=== PATIENT | female | born 1945 | race African-American/Black ===

== ENCOUNTER 2016-05-25 07:48 | Emergency (ER) | payer MEDICARE, OTHER ==
[~2016-05-25] VITALS: Ht 167.6 cm; Wt 100.0 kg
[2016-05-25] MEDS ORDERED: ACET-2247 PO (07:52)
[2016-05-25 08:11] VITALS: BP 152/77
== END 2016-05-25 09:02 | disposition home or self-care (01) ==
LOC: EMS 07:49
DX: K04.7 Periapical abscess without sinus (principal); H92.02 Otalgia, left ear
CPT/HCPCS: 99283

== ENCOUNTER 2021-12-16 08:01 | Inpatient (IN) | payer MEDICARE, OTHER ==
[~2021-12-16] VITALS: Ht 167.6 cm; Wt 93.5 kg
[~2021-12-16 08:01] MED LIST: ACET-2247 PO
[2021-12-16] MEDS ORDERED: HYDR25TA2 PO (08:27)
[2021-12-16] MEDS ORDERED: ATOR40TA28 PO (08:27)
[2021-12-16] MEDS ORDERED: LISI-893 PO (08:27)
[2021-12-16] MEDS ORDERED: AMLO-258 PO (08:27)
[2021-12-16 08:28] LABS: BASOPHILS % (AUTO) 0.4 % (0.0-2.0); EOSINOPHILS % (AUTO) 0.4 % (1.0-6.0); HEMATOCRIT 42.6 % (36-46); HEMOGLOBIN 13.7 g/dL (12.0-16.0); LYMPHOCYTES # (AUTO) 1.5 K/uL (1.0-4.8); LYMPHOCYTES % (AUTO) 9.1 % (22.0-44.0); MEAN CORPUSCULAR HEMOGLOBIN 26.6 pg (26.0-34.0); MEAN CORPUSCULAR HGB CONC 32.1 G/dL (31.0-37.0); MEAN CORPUSCULAR VOLUME 83 fL (80-100); MONOCYTES % (AUTO) 6.1 % (2.0-9.0); NEUTROPHILS # (AUTO) 13.4 K/uL (1.8-7.7); PLATELET COUNT (AUTO) 182 K/uL (150-450); RED BLOOD CELL COUNT(AUTO) 5.14 MIL/uL (4.00-5.20); RED CELL DISTRIBUTION WIDTH 15.2 % (11.5-14.5)
[2021-12-16 08:36] LABS: COVID AG,FIA SOURCE NASAL SWAB
[2021-12-16] MEDS ORDERED: ACETAMINOPHEN 325 MG TABLET PO PRN (08:45)
[2021-12-16] MEDS ORDERED: DILTIAZEM HCL 5 MG/ML 5 ML VIAL IVP ONE ×2 (08:45→11:45)
[2021-12-16 08:54] LABS: INR 1.3 (0.9-1.1); PROTHROMBIN TIME 13.2 SEC (9.4-11.6)
[2021-12-16] MEDS ORDERED: APIXABAN 5 MG TABLET PO SCH (09:00)
[2021-12-16 09:02] LABS: ALBUMIN 3.4 g/dL (3.4-5.0); BILIRUBIN,TOTAL 1.4 mg/dL (0.1-1.0); CALCIUM, TOTAL 9.3 mg/dL (8.8-10.5); CREATININE 1.32 mg/dL (0.60-1.30); THYROID STIMULATING HORMONE 0.63 uIU/mL (0.36-3.74); TOTAL PROTEIN, SERUM 7.6 g/dL (6.4-8.2)
[2021-12-16 09:05] LABS: POTASSIUM 2.6 mmol/L (3.5-5.1)
[2021-12-16] MEDS: DOCUSATE SODIUM 100 MG CAPSULE PO SCH ×2 (09:09→20:55)
[2021-12-16] MEDS: AMIODARONE HCL 200 MG TABLET PO SCH ×2 (09:10→20:55)
[2021-12-16] MEDS: FAMOTIDINE 20 MG TABLET PO SCH (09:10)
[2021-12-16] MEDS ORDERED: POTASSIUM CHLORIDE 20 MEQ ER TABLET PO ONE (09:15)
[2021-12-16] MEDS: POTASSIUM CHL 10 MEQ/WATER 50 ML IV SCH ×2 (09:30→10:25)
[2021-12-16] MEDS ORDERED: SODIUM CHLORIDE 0.9% 1,000 ML IV ONE (09:30)
[2021-12-16] MEDS ORDERED: ASPIRIN 81 MG CHEWABLE TABLET PO ONE (09:45)
[2021-12-16 09:50] LABS: MAGNESIUM 2.4 mg/dL (1.80-2.40)
[2021-12-16] MEDS ORDERED: DILTIAZEM HCL 125 MG in DEXTROSE 5%-WATER 100 ML IV SCH (11:45)
[2021-12-16] MEDS ORDERED: LORazepam 2 MG/ML VIAL IVP ONE (14:15)
[2021-12-16] MEDS ORDERED: LORazepam 1 MG TABLET PO ONE (14:15)
[2021-12-16] MEDS ORDERED: LORazepam 2 MG/ML VIAL ONE (14:22)
[2021-12-16] MEDS ORDERED: HEPARIN SODIUM 25000 UNITS/D5W 250 ML IV PRN (14:45)
[2021-12-16] MEDS ORDERED: LORazepam 2 MG/ML VIAL IM ONE (14:45)
[2021-12-16] MEDS ORDERED: HEPARIN SODIUM,PORCINE 5,000 UNITS/ML VIAL IVP PRN ×2 (14:45)
[2021-12-16 15:01] VITALS: BP 118/60
[2021-12-16 15:33] LABS: BASOPHILS % (AUTO) 0.2 % (0.0-2.0); EOSINOPHILS % (AUTO) 0 % (1.0-6.0); HEMATOCRIT 41.5 % (36-46); HEMOGLOBIN 13.2 g/dL (12.0-16.0); LYMPHOCYTES # (AUTO) 0.9 K/uL (1.0-4.8); LYMPHOCYTES % (AUTO) 7.5 % (22.0-44.0); MEAN CORPUSCULAR HEMOGLOBIN 26.5 pg (26.0-34.0); MEAN CORPUSCULAR HGB CONC 31.8 G/dL (31.0-37.0); MEAN CORPUSCULAR VOLUME 83 fL (80-100); MONOCYTES # (AUTO) 0.7 K/uL (0.1-1.0); MONOCYTES % (AUTO) 5.9 % (2.0-9.0); NEUTROPHILS # (AUTO) 10.6 K/uL (1.8-7.7); PLATELET COUNT (AUTO) 176 K/uL (150-450); RED BLOOD CELL COUNT(AUTO) 4.98 MIL/uL (4.00-5.20); RED CELL DISTRIBUTION WIDTH 15.3 % (11.5-14.5)
[2021-12-16 15:39] LABS: NEUTROPHILS % (AUTO) 86.4 % (40.0-70.0)
[2021-12-16 15:49] LABS: INR 1.2 (0.9-1.1); PROTHROMBIN TIME 13.1 SEC (9.4-11.6)
[2021-12-16 19:32] VITALS: BP 113/73
[2021-12-17 00:09] VITALS: BP 130/76
[2021-12-17 06:48] LABS: APPEARANCE,URINE HAZY (CLEAR); BILIRUBIN,URINE NEGATIVE (NEGATIVE); GLUCOSE, URINE (UA) NEGATIVE (NEGATIVE); KETONES,URINE NEGATIVE (NEGATIVE); LEUKOCYTE ESTERASE ,URINE LARGE (NEGATIVE); NITRATE,URINE NEGATIVE (NEGATIVE); OCCULT BLOOD,URINE TRACE (NEGATIVE); PH,URINE 5.5 (5.0-8.0); PROTEIN,URINE 30-70 mg/dL (NEGATIVE); SPECIFIC GRAVITIY, URINE 1.017 (1.003-1.030); UROBILINOGEN,URINE <=1.0 mg/dL (<=1.0)
[2021-12-17 07:05] LABS: AMORPHOUS SEDIMENT,UR Moderate /LPF (None Seen); BACTERIA,URINE Moderate /HPF (None Seen); FINE GRANULAR CASTS,URINE 0-2 /LPF (None Seen); SQUAMOUS EPITHELIAL CELL,UR Many /LPF (None Seen)
[2021-12-17 07:06] LABS: WBC,URINE 26-50 /HPF (0-5)
[2021-12-17 07:22] LABS: BASOPHILS % (AUTO) 0.2 % (0.0-2.0); EOSINOPHILS % (AUTO) 0.5 % (1.0-6.0); HEMATOCRIT 36.9 % (36-46); HEMOGLOBIN 11.9 g/dL (12.0-16.0); LYMPHOCYTES # (AUTO) 2.9 K/uL (1.0-4.8); LYMPHOCYTES % (AUTO) 24.2 % (22.0-44.0); MEAN CORPUSCULAR HEMOGLOBIN 26.8 pg (26.0-34.0); MEAN CORPUSCULAR HGB CONC 32.3 G/dL (31.0-37.0); MEAN CORPUSCULAR VOLUME 83 fL (80-100); MONOCYTES # (AUTO) 0.9 K/uL (0.1-1.0); MONOCYTES % (AUTO) 7.1 % (2.0-9.0); NEUTROPHILS # (AUTO) 8.2 K/uL (1.8-7.7); PLATELET COUNT (AUTO) 175 K/uL (150-450); RED BLOOD CELL COUNT(AUTO) 4.44 MIL/uL (4.00-5.20); RED CELL DISTRIBUTION WIDTH 14.6 % (11.5-14.5)
[2021-12-17 07:32] LABS: CALCIUM, TOTAL 9.2 mg/dL (8.8-10.5); CREATININE 1.2 mg/dL (0.60-1.30); POTASSIUM 3.4 mmol/L (3.5-5.1)
[2021-12-17 07:33] VITALS: BP 148/66
[2021-12-17] MEDS ORDERED: SODIUM CHLORIDE 0.9% 250 ML IV ONE (08:34)
[2021-12-17] MEDS: CefTRIAXone 1 GM/DEXTROSE 50 ML IV SCH (08:38)
[2021-12-17] MEDS: FAMOTIDINE 20 MG TABLET PO SCH (08:39)
[2021-12-17] MEDS: DOCUSATE SODIUM 100 MG CAPSULE PO SCH ×2 (08:39→21:49)
[2021-12-17] MEDS: ATORVASTATIN CALCIUM 40 MG TABLET PO SCH (08:39)
[2021-12-17] MEDS: AMIODARONE HCL 200 MG TABLET PO SCH ×2 (08:40→21:49)
[2021-12-17] MEDS: METOPROLOL TARTRATE 25 MG TABLET PO SCH ×2 (09:49→21:49)
[2021-12-17] MEDS ORDERED: SODIUM CHLORIDE 0.9% 500 ML IV ONE (10:58)
[2021-12-17] MEDS ORDERED: POTASSIUM CHLORIDE 20 MEQ ER TABLET PO PRN (11:00)
[2021-12-17] MEDS: POTASSIUM CHL 10 MEQ/WATER 50 ML IV PRN ×3 (11:03→13:45)
[2021-12-17 11:49] VITALS: BP 113/61
[2021-12-17 11:58] LABS: CHOL/HDL RATIO 2.2 (3.9-5.7)
[2021-12-17 16:21] VITALS: BP 130/70
[2021-12-17] MEDS ORDERED: LORazepam 2 MG/ML VIAL IVP PRN (17:15)
[2021-12-17 20:20] VITALS: BP 149/79
[2021-12-17] MEDS: APIXABAN 5 MG TABLET PO SCH (21:49)
[2021-12-18 01:30] VITALS: BP 127/78
[2021-12-18 04:10] VITALS: BP 132/81
[2021-12-18 08:05] VITALS: BP 129/87
[2021-12-18] MEDS: METOPROLOL TARTRATE 25 MG TABLET PO SCH ×2 (09:00→21:00)
[2021-12-18] MEDS: APIXABAN 5 MG TABLET PO SCH ×2 (09:37→22:34)
[2021-12-18] MEDS: DOCUSATE SODIUM 100 MG CAPSULE PO SCH ×2 (09:38→22:34)
[2021-12-18] MEDS: AMIODARONE HCL 200 MG TABLET PO SCH ×2 (09:38→22:34)
[2021-12-18] MEDS: FAMOTIDINE 20 MG TABLET PO SCH (09:38)
[2021-12-18] MEDS: ATORVASTATIN CALCIUM 40 MG TABLET PO SCH (09:38)
[2021-12-18] MEDS: CefTRIAXone 1 GM/DEXTROSE 50 ML IV SCH (09:39)
[2021-12-18 12:03] VITALS: BP 130/83
[2021-12-18 16:15] VITALS: BP 161/92
[2021-12-18 19:24] VITALS: BP 142/82
[2021-12-18] MEDS ORDERED: IOHEXOL 350 MG/ML 100 ML VIAL ONE (20:19)
[2021-12-18] MEDS ORDERED: SODIUM CHLORIDE 0.9% 100 ML ONE (20:19)
[2021-12-18] MEDS ORDERED: APIXABAN 5 MG TABLET PO ONE (22:45)
[2021-12-19 00:05] VITALS: BP 137/70
[2021-12-19 03:20] VITALS: BP 139/94
[2021-12-19 08:24] VITALS: BP 143/73
[2021-12-19] MEDS: ATORVASTATIN CALCIUM 40 MG TABLET PO SCH (08:55)
[2021-12-19] MEDS: AMIODARONE HCL 200 MG TABLET PO SCH (08:55)
[2021-12-19] MEDS: DOCUSATE SODIUM 100 MG CAPSULE PO SCH (08:55)
[2021-12-19] MEDS: FAMOTIDINE 20 MG TABLET PO SCH (08:55)
[2021-12-19] MEDS: CefTRIAXone 1 GM/DEXTROSE 50 ML IV SCH ×2 (08:56→10:04)
[2021-12-19] MEDS ORDERED: APIXABAN 5 MG TABLET PO SCH (09:00)
[2021-12-19] MEDS: METOPROLOL TARTRATE 25 MG TABLET PO SCH (09:01)
[2021-12-19 12:22] VITALS: BP 138/68
[2021-12-19] MEDS ORDERED: APIX5TAB PO (12:53)
[2021-12-19] MEDS ORDERED: AMIO200 PO (12:53)
[2021-12-19] MEDS ORDERED: ATOR40TA71 PO (12:53)
[2021-12-19] MEDS ORDERED: METO25 PO (12:53)
[2021-12-19] MEDS ORDERED: CEPH-558 PO (12:54)
[2021-12-19 16:05] VITALS: BP 138/92
[2021-12-19 19:56] VITALS: BP 134/92
== END 2021-12-19 20:30 | disposition home or self-care (01) | DRG 308 ==
LOC: EMS 08:07 → 5S 13:08
PROVIDERS: ADMIT Internal Medicine; ATTEND Internal Medicine
PROC: 05HA33Z Insertion of Infusion Device into Left Brachial Vein, Percutaneous Approach (ICD-10-PCS; principal; 2021-12-16)
DX: I48.91 Unspecified atrial fibrillation (principal); I26.99 Other pulmonary embolism without acute cor pulmonale; N17.9 Acute kidney failure, unspecified; N39.0 Urinary tract infection, site not specified; G93.49 Other encephalopathy; F03.91 Unspecified dementia, unspecified severity, with behavioral disturbance; E87.6 Hypokalemia; I10 Essential (primary) hypertension; I27.20 Pulmonary hypertension, unspecified; Z20.822 Contact with and (suspected) exposure to COVID-19; M19.90 Unspecified osteoarthritis, unspecified site; Z79.01 Long term (current) use of anticoagulants; Z83.3 Family history of diabetes mellitus; Z78.1 Physical restraint status; Z79.899 Other long term (current) drug therapy
CPT/HCPCS: 36245; 36569; 70450; 71045; 71275; 76937; 80048; 80053; 80061; 81001; 82550; 83036; 83735; 83880; 84132; 84443; 84484; 85025; 85610; 85730; 87086; 93005; 93306; 93970; 97161; 97530; 99291; G0378; J0696; J1644; J2060; J3480; J3490; J7040; J7050; J7060; Q9967; 36415-L1; 36415-TC

== ENCOUNTER 2023-11-12 18:16 | Inpatient (IN) | payer MEDICARE, OTHER ==
[~2023-11-12] VITALS: Ht 172.7 cm; Wt 68.2 kg
[~2023-11-12 18:16] MED LIST changes: -ACET-2247 PO; +AMIO200 PO; +APIX5TAB PO; +ATOR40TA71 PO; +CEPH-558 PO; +METO25 PO
[2023-11-12 20:30] LABS: BASOPHILS % (AUTO) 0.6 % (0.0-2.0); EOSINOPHILS % (AUTO) 0 % (1.0-6.0); HEMATOCRIT 45.2 % (36-46); HEMOGLOBIN 14.4 g/dL (12.0-16.0); LYMPHOCYTES % (AUTO) 13.3 % (22.0-44.0); MEAN CORPUSCULAR HEMOGLOBIN 27.2 pg (26.0-34.0); MEAN CORPUSCULAR HGB CONC 31.9 G/dL (31.0-37.0); MEAN CORPUSCULAR VOLUME 85 fL (80-100); MONOCYTES % (AUTO) 6.5 % (2.0-9.0); NEUTROPHILS # (AUTO) 12.2 K/uL (1.8-7.7); NEUTROPHILS % (AUTO) 79.6 % (40.0-70.0); PLATELET COUNT (AUTO) 201 K/uL (150-450); RED CELL DISTRIBUTION WIDTH 16.2 % (11.5-14.5); WHITE BLOOD COUNT (AUTO) 15.3 K/uL (4.5-11.0)
[2023-11-12 20:37] LABS: ANION GAP 5 mmol/L (8-16); CALCIUM, TOTAL 9.8 mg/dL (8.8-10.5); CARBON DIOXIDE 31 mmol/L (22-29); CHLORIDE 98 mmol/L (98-107); CREATININE 1.37 mg/dL (0.60-1.30); GLOMERULAR FILTR. RATE CALC 45 mL/min (>60); GLUCOSE,RANDOM 103 mg/dL (70-110); POTASSIUM 3.5 mmol/L (3.5-5.1); SODIUM SERUM 134 mmol/L (136-145); UREA NITROGEN, BLOOD 21 mg/dL (7-18)
[2023-11-12 20:41] LABS: INR 1.2 (0.9-1.1); PROTHROMBIN TIME 12.4 SEC (9.4-11.6)
[2023-11-12 20:44] LABS: TROPONIN I-HIGH SENSITIVITY 19 ng/L (<51)
[2023-11-12 20:51] LABS: LACTIC ACID 2.3 mmol/L (0.4-2.0)
[2023-11-12 20:54] LABS: ALANINE AMINOTRANSFERASE 11 U/L (12-78); ALBUMIN 3.3 g/dL (3.4-5.0); ALKALINE PHOSPHATASE 83 U/L (46-116); ASPARTATE AMINOTRANSFERASE 20 U/L (15-37); BILIRUBIN,TOTAL 2.9 mg/dL (0.1-1.0); CREATINE KINASE, TOTAL ONLY 118 U/L (26-192); TOTAL PROTEIN, SERUM 8.3 g/dL (6.4-8.2)
[2023-11-12 20:55] LABS: AMMONIA 3 umol/L (11-32)
[2023-11-12 21:32] LABS: APPEARANCE,URINE HAZY (CLEAR); BILIRUBIN,URINE NEGATIVE (NEGATIVE); COLOR,URINE YELLOW (YELLOW); GLUCOSE, URINE (UA) NEGATIVE (NEGATIVE); LEUKOCYTE ESTERASE ,URINE MODERATE (NEGATIVE); NITRATE,URINE NEGATIVE (NEGATIVE); OCCULT BLOOD,URINE SMALL (NEGATIVE); PH,URINE 5.5 (5.0-8.0); PH,URINE DRUG SCREEN 5.5 (5.0-8.0); PROTEIN,URINE TRACE mg/dL (NEGATIVE); SPECIFIC GRAVITIY, URINE 1.017 (1.003-1.030)
[2023-11-12 21:39] LABS: ALCOHOL, URINE DRUG SCREEN NEGATIVE (NEGATIVE); AMPHET/METH SCREEN,URINE NEGATIVE (NEGATIVE); BARBITURATE SCREEN, URINE NEGATIVE (NEGATIVE); BENZODIAZEPINES SCREEN,URINE NEGATIVE (NEGATIVE); CANNABINOID SCREEN,URINE NEGATIVE (NEGATIVE); COCAINE SCREEN,URINE NEGATIVE (NEGATIVE); METHADONE SCREEN, URINE NEGATIVE (NEGATIVE); OPIATE SCREEN,URINE NEGATIVE (NEGATIVE); PHENCYCLIDINE SCREEN,URINE NEGATIVE (NEGATIVE)
[2023-11-12] MEDS ORDERED: 0.9% SODIUM CHLORIDE 10 ML SYRINGE IVP PRN (21:45)
[2023-11-12] MEDS: CefTRIAXone 1 GM/DEXTROSE 50 ML IV SCH (21:51)
[2023-11-12] MEDS: SODIUM CHLORIDE 0.9% 2,050 ML IV ONE (21:52)
[2023-11-12] MEDS ORDERED: ONDANSETRON HCL 4 MG/2 ML VIAL IVP PRN (22:00)
[2023-11-12] MEDS ORDERED: ACETAMINOPHEN 325 MG TABLET PO PRN (22:00)
[2023-11-12 22:14] LABS: BACTERIA,URINE Many /HPF (None Seen); RBC,URINE 0-2 /HPF (0-2); SQUAMOUS EPITHELIAL CELL,UR Rare /LPF (None Seen)
[2023-11-12 23:05] LABS: GLUCOSE,RANDOM 104 mg/dL (70-110); LACTATE DEHYDROGENASE 233 U/L (81-234)
[2023-11-12] MEDS: HEPARIN SODIUM,PORCINE 5,000 UNITS/ML VIAL SQ SCH (23:08)
[2023-11-12 23:41] LABS: COVID AG,FIA SOURCE NASAL SWAB
[2023-11-12 23:50] LABS: SARS-COV2 (COVID) ANTIGEN,FIA Negative (Negative)
[2023-11-13 06:47] LABS: BASOPHILS % (AUTO) 0.2 % (0.0-2.0); EOSINOPHILS % (AUTO) 0.3 % (1.0-6.0); HEMATOCRIT 40.7 % (36-46); LYMPHOCYTES # (AUTO) 2.5 K/uL (1.0-4.8); LYMPHOCYTES % (AUTO) 18.4 % (22.0-44.0); MEAN CORPUSCULAR HEMOGLOBIN 27.1 pg (26.0-34.0); MEAN CORPUSCULAR VOLUME 85 fL (80-100); MONOCYTES # (AUTO) 1.1 K/uL (0.1-1.0); MONOCYTES % (AUTO) 8.4 % (2.0-9.0); NEUTROPHILS # (AUTO) 9.7 K/uL (1.8-7.7); NEUTROPHILS % (AUTO) 72.7 % (40.0-70.0); PLATELET COUNT (AUTO) 167 K/uL (150-450); RED BLOOD CELL COUNT(AUTO) 4.81 MIL/uL (4.00-5.20); RED CELL DISTRIBUTION WIDTH 16.2 % (11.5-14.5); WHITE BLOOD COUNT (AUTO) 13.4 K/uL (4.5-11.0)
[2023-11-13 06:57] LABS: ANION GAP 5 mmol/L (8-16); CALCIUM, TOTAL 8.7 mg/dL (8.8-10.5); CARBON DIOXIDE 30 mmol/L (22-29); CHLORIDE 101 mmol/L (98-107); CREATININE 1.01 mg/dL (0.60-1.30); GLOMERULAR FILTR. RATE CALC > 60 mL/min (>60); GLUCOSE,RANDOM 85 mg/dL (70-110); POTASSIUM 3.3 mmol/L (3.5-5.1); SODIUM SERUM 136 mmol/L (136-145); UREA NITROGEN, BLOOD 18 mg/dL (7-18)
[2023-11-13] MEDS ORDERED: SODIUM CHLORIDE 0.9% 100 ML ONE (07:00)
[2023-11-13] MEDS ORDERED: IOHEXOL 350 MG/ML 100 ML VIAL ONE (07:00)
[2023-11-13] MEDS ORDERED: 0.9% SODIUM CHLORIDE 10 ML SYRINGE IVP ONE (07:00)
[2023-11-13 11:09] VITALS: BP 150/91; PULSE 69; RESP 19; TEMP 97.8
[2023-11-13] MEDS ORDERED: HEPARIN SODIUM,PORCINE 5,000 UNITS/ML VIAL IVP PRN ×2 (11:30)
[2023-11-13] MEDS: HEPARIN SODIUM 25000 UNITS/D5W 250 ML IV PRN (12:31)
[2023-11-13] MEDS ORDERED: SODIUM CHLORIDE 0.9% 250 ML IV ONE (14:13)
[2023-11-13] MEDS: PIPERACILLIN/TAZO 3.375 GM/D5W 50 ML IV SCH (14:44)
[2023-11-13 16:54] VITALS: BP 147/74; PULSE 99; RESP 18; TEMP 98.1
[2023-11-13] MEDS ORDERED: POTASSIUM CHL 10 MEQ/WATER 50 ML IV PRN (17:00)
[2023-11-13] MEDS: POTASSIUM CHLORIDE 20 MEQ ER TABLET PO PRN (18:01)
[2023-11-13] MEDS: HALOPERIDOL LACTATE 5 MG/ML VIAL IM ONE (18:17)
[2023-11-13 21:00] VITALS: BP 155/63; PULSE 77; RESP 18; TEMP 97.2
[2023-11-13] MEDS: METOPROLOL TARTRATE 25 MG TABLET PO SCH (21:03)
[2023-11-14] VITALS (7 sets, daily range): BP systolic 120–156; BP diastolic 81–96; PULSE 68–73; RESP 18; TEMP 96.6–98.1
[2023-11-14 07:02] LABS: BASOPHILS % (AUTO) 0.4 % (0.0-2.0); EOSINOPHILS % (AUTO) 0.4 % (1.0-6.0); HEMATOCRIT 44.7 % (36-46); HEMOGLOBIN 14.4 g/dL (12.0-16.0); LYMPHOCYTES # (AUTO) 1.8 K/uL (1.0-4.8); LYMPHOCYTES % (AUTO) 12.6 % (22.0-44.0); MEAN CORPUSCULAR HEMOGLOBIN 27.4 pg (26.0-34.0); MEAN CORPUSCULAR HGB CONC 32.3 G/dL (31.0-37.0); MEAN CORPUSCULAR VOLUME 85 fL (80-100); MONOCYTES # (AUTO) 1.2 K/uL (0.1-1.0); NEUTROPHILS # (AUTO) 11.4 K/uL (1.8-7.7); NEUTROPHILS % (AUTO) 78.6 % (40.0-70.0); PLATELET COUNT (AUTO) 162 K/uL (150-450); RED BLOOD CELL COUNT(AUTO) 5.26 MIL/uL (4.00-5.20); WHITE BLOOD COUNT (AUTO) 14.5 K/uL (4.5-11.0)
[2023-11-14 07:15] LABS: ANION GAP 8 mmol/L (8-16); CARBON DIOXIDE 28 mmol/L (22-29); CHLORIDE 99 mmol/L (98-107); CREATININE 0.84 mg/dL (0.60-1.30); GLOMERULAR FILTR. RATE CALC > 60 mL/min (>60); GLUCOSE,RANDOM 98 mg/dL (70-110); POTASSIUM 3.8 mmol/L (3.5-5.1); SODIUM SERUM 135 mmol/L (136-145); UREA NITROGEN, BLOOD 12 mg/dL (7-18)
[2023-11-14] MEDS: ATORVASTATIN CALCIUM 40 MG TABLET PO SCH (08:52)
[2023-11-15 03:58] VITALS: BP 140/74; PULSE 71; RESP 18; TEMP 96.7
[2023-11-15 07:38] VITALS: BP 129/78; PULSE 55; RESP 18; TEMP 97.6
[2023-11-15 11:59] VITALS: BP 115/76; PULSE 72; RESP 16; TEMP 97.7
[2023-11-15] MEDS ORDERED: ENOXAPARIN SODIUM 80 MG/0.8 ML PF SYRINGE SQ SCH (12:00)
[2023-11-15 16:08] VITALS: BP 97/65; PULSE 73; RESP 18; TEMP 98.3
[2023-11-15 19:30] VITALS: BP 123/85; PULSE 98; RESP 18; TEMP 98.3
[2023-11-15] MEDS: ENOXAPARIN SODIUM 80 MG/0.8 ML PF SYRINGE SQ SCH (21:48)
[2023-11-16] MEDS ORDERED: SODIUM CHLORIDE 0.9% 250 ML IV ONE (01:26)
[2023-11-16 05:00] VITALS: BP 134/92; PULSE 71; RESP 18; TEMP 98.6
[2023-11-16 07:41] VITALS: BP 135/83; PULSE 71; RESP 20; TEMP 98.4
[2023-11-16] MEDS ORDERED: METO25 PO (12:02)
[2023-11-16] MEDS ORDERED: ENOX80SY SQ (12:02)
[2023-11-16] MEDS ORDERED: ATOR40TA71 PO (12:02)
[2023-11-16] MEDS ORDERED: AMOX-457 PO (12:04)
[2023-11-16 15:23] VITALS: BP 130/88; PULSE 74; RESP 18; TEMP 98.2
[2023-11-16 19:51] VITALS: BP 130/84; PULSE 77; RESP 19; TEMP 98.3
[2023-11-17 05:50] VITALS: BP 140/87; PULSE 69; RESP 18; TEMP 97.7
[2023-11-17 07:28] VITALS: BP 139/95; PULSE 71; RESP 20; TEMP 97.7
[2023-11-17 10:17] LABS: COVID AG,FIA SOURCE NASAL SWAB
[2023-11-17 10:54] LABS: SARS-COV2 (COVID) ANTIGEN,FIA Negative (Negative)
[2023-11-17] MEDS: BISACODYL 10 MG RECTAL RECTAL SUPPOSITORY PR ONE (12:10)
[2023-11-17 13:07] LABS: ATYPICAL P-ANCA AB <1:20 titer (Neg:<1:20); CYTOPLASMIC (C-ANCA) AB, IGG <1:20 titer (Neg:<1:20)
[2023-11-17 16:36] LABS: ANTI-PROTEINASE 3 (PR3) <0.2 units (0.0-0.9)
== END 2023-11-17 15:10 | DRG 871 ==
LOC: EMS 18:16 → EDH 21:52 → 5S 11-13 09:30 → 6S 11-15 18:55
PROVIDERS: ADMIT Internal Medicine; ATTEND Internal Medicine
DX: A41.9 Sepsis, unspecified organism (principal); D65 Disseminated intravascular coagulation [defibrination syndrome]; E43 Unspecified severe protein-calorie malnutrition; G93.41 Metabolic encephalopathy; J69.0 Pneumonitis due to inhalation of food and vomit; I26.90 Septic pulmonary embolism without acute cor pulmonale; I26.99 Other pulmonary embolism without acute cor pulmonale; J98.11 Atelectasis; N39.0 Urinary tract infection, site not specified; I48.92 Unspecified atrial flutter; N17.9 Acute kidney failure, unspecified; I48.19 Other persistent atrial fibrillation; Z16.24 Resistance to multiple antibiotics; F02.80 Dementia in other diseases classified elsewhere, unspecified severity, without behavioral disturbance, psychotic disturbance, mood disturbance, and anxiety; G30.9 Alzheimer's disease, unspecified; D25.9 Leiomyoma of uterus, unspecified; Z87.440 Personal history of urinary (tract) infections; E04.2 Nontoxic multinodular goiter; I10 Essential (primary) hypertension; E87.6 Hypokalemia; I07.1 Rheumatic tricuspid insufficiency; K44.9 Diaphragmatic hernia without obstruction or gangrene; K56.41 Fecal impaction; Z68.22 Body mass index [BMI] 22.0-22.9, adult; K82.8 Other specified diseases of gallbladder; N28.1 Cyst of kidney, acquired; M19.09 Primary osteoarthritis, other specified site; K57.30 Diverticulosis of large intestine without perforation or abscess without bleeding; T45.515A Adverse effect of anticoagulants, initial encounter; R54 Age-related physical debility; Z20.822 Contact with and (suspected) exposure to COVID-19; K62.89 Other specified diseases of anus and rectum; I34.0 Nonrheumatic mitral (valve) insufficiency; Z79.899 Other long term (current) drug therapy; Z83.3 Family history of diabetes mellitus; Z79.01 Long term (current) use of anticoagulants; Y92.89 Other specified places as the place of occurrence of the external cause; Z78.1 Physical restraint status
CPT/HCPCS: 51702; 70450; 71045; 71260; 72193; 74160; 76705; 80048; 80053; 80307; 81001; 82140; 82550; 82947; 83516; 83605; 83615; 83735; 84132; 84145; 84484; 85025; 85610; 85730; 86038; 86171; 86225; 86256; 87040; 87086; 87186; 87305; 87385; 92610; 93005; 93306; 97163; 97167; 97530; 97535; 99285; G0378; J0696; J1630; J1644; J1650; J2543; J7050; 36415-L1; 36415-TC